=== PATIENT | female | born 1955 | race Caucasian/White ===

== ENCOUNTER 2017-01-25 14:17 | Inpatient (IN) | payer OTHER ==
--- NOTE | 2017-01-25 14:33 | ERNOTE ---
Abdominal HPI - General Chief Complaint: Abdominal Pain Time Seen by Provider: 01/25/17 14:30 Source: patient, RN/MD Exam Limitations: no limitations - Immun/Allergies/Home Medications Immunizatons: IMMUNIZATION HX Immunizations Up to Date Yes History of Influenza Vaccine Yes Hx Pneumococcal Vaccination No Allergies/Adverse Reactions: Allergies No Known Allergies Allergy (Verified 01/25/17 14:38) Home Medications: HOME MEDICATIONS Cetirizine HCl [Zyrtec] 10 mg PO DAILY 01/25/17 [Last Taken Unknown] Clonidine HCl [Catapres] 0.2 mg PO DAILY 01/25/17 [Last Taken Unknown] FLUoxetine HCL [Prozac] 20 mg PO DAILY 01/25/17 [Last Taken Unknown] Ferrous Sulfate [Iron] 325 mg PO DAILY 01/25/17 [Last Taken Unknown] Losartan Potassium [Cozaar] 100 mg PO DAILY 01/25/17 [Last Taken Unknown] Mometasone Furoate [Elocon] 1 appl TP DAILY 01/25/17 [Last Taken Unknown] Omeprazole 40 mg PO DAILY 01/25/17 [Last Taken Unknown] Oxybutynin Chloride [Ditropan] 5 mg PO BID 01/25/17 [Last Taken Unknown] Pravastatin Sodium [Pravachol] 20 mg PO DAILY 01/25/17 [Last Taken Unknown] Sucralfate [Carafate Suspension] 1 g PO QID 01/25/17 [Last Taken Unknown] Triamcinolone Acetonide [Kenalog 0.1%] 1 appl TP BID 01/25/17 [Last Taken Unknown] Warfarin Sodium [Coumadin] 2.5 mg PO ONCE 01/25/17 [Last Taken Unknown] Warfarin Sodium [Coumadin] 5 mg PO MOWEFR 01/25/17 [Last Taken Unknown] levETIRAcetam [Keppra] 500 mg PO BID 01/25/17 [Last Taken Unknown] rOPINIRole HCL [Requip] 1 mg PO DAILY 01/25/17 [Last Taken Unknown] - History of Present Illness Narrative: 61 y.o. female from [place], report given by Dr. Jerome, about diagnosis of acute appendicitis. Pt has received morphine and Zosyn and IV fluids at this time and is pain-free. Review of Systems - Review of Systems Constitutional: Present: no symptoms reported EYE: Present: no symptoms reported ENT: Present: no symptoms reported Respiratory: Present: no symptoms reported Gastrointestinal/Abdominal: Present: See HPI Genitourinary: Present: no symptoms reported Musculoskeletal: Present: no symptoms reported - Patient's Past Medical History Patient History - Medical: Arthritis, Depression Patient History - Cardiac/Respiratory: Hypertension, Hyperlipidemia, CPAP/BiPAP Home Use, Sleep Apnea Patient History - Cancer: No Hx of Cancer Patient History - Surgical Procedures: Back Surgery, Cholecystectomy, Other Patient History - Other: None - Family History Sister Family History - Medical: - Social History Living Situations: home Abuse History: No History of abuse Psych History: No pertinent hx Smoking Status: Never smoker Alcohol Use: none Drug Use: none - Immunizations Immunizations Up to Date: Yes Hx Pneumococcal Vaccination: No History of Influenza Vaccine: Yes Physical Exam - Physical Exam General Appearance: Present: wd/wn, alert, no apparent distress Respiratory: Present: no respiratory distress, normal breath sounds, no accessory muscle use, chest nontender, lungs clear Cardiovascular/Chest: Present: regular rate, rhythm, no murmur, normal peripheral pulses Gastrointestinal/Abdominal: Present: other - due to not wanting to aggravate the patient's symptoms, especially after final diagnosis has been made, this examiner did not examine or palpate the belly. ED Progress - Vital Signs Patient's Vital Signs:: I have reviewed the patient's vital signs. Vital Signs: Vital Signs 01/25/17 14:19 Temperature 36.7 C Pulse Rate 50 L Respiratory 16 Rate Blood Pressure 148/63 O2 Sat by Pulse 95 Oximetry - Progress/Reassessment Chief Complaint: Abdominal Pain Plan - Plan Plan: She was seen and diagnosed and treated by Dr.Khanolkar Sousa and patient has been transferred here for definitive care. I have called Dr. Viramontes and have made him aware that this patient is in the emergency room patient will be admitted to the surgery service. Departure - Departure Clinical Impression: Appendicitis Qualifiers: Appendicitis type: acute appendicitis Acute appendicitis type: unspecified acute appendicitis type Qualified Code(s): K35.80 - Unspecified acute appendicitis Clinical Impression: (Ruled Out): Acute appendicitis with appendiceal abscess Disposition: [facility] Condition: Serious Referrals: Jony Mar MD [Primary Care Provider] -
[2017-01-25 16:00] LABS: INR 1.83 INR (0.90-1.10)
--- OUTSIDE RECORDS SUMMARY | 2017-01-25 16:42 | XMS REPORT | Continuity of Care Document ---
:1955 Author Organization [facility] ([facility]) Address [address] [place] [address] Phone [phone] Care Team Providers Name Role Phone Jony Mar Primary Care Provider [phone] Source Comments This disclosure is being made pursuant to the Care Everywhere program, applicable federal and state laws, and may not contain all informaitonavailable regarding this patient.[facility] ([facility]) Active Allergies and Adverse Reactions Allergen Noted Date Severity Reactions Comments Lisinopril 09/19/2013 OTHER Cough Current Medications Prescription Sig. Disp. Refills Start Date End Date Status traZODone 100 mg Take 100-200 mg by Active tablet mouth at bedtime as needed for Sleep. fluticasone 50 use 2 Sprays into 16 g 3 10/19/2012 Active mcg/Actuation nasal the nose daily. spray Indications: postnasal drip losartan 100 mg Take 1 Tab by mouth 60 Tab 6 03/09/2013 Active tablet daily. Indications: HYPERTENSION omeprazole 40 mg Take 1 Cap by mouth 30 Cap 6 10/05/2013 Active extended release daily. gerd capsule Indications: reflux esophagitis cloNIDine 0.1 mg Take 1 Tab by mouth 120 Tab 1 03/12/2014 Active tablet 2 times daily. Indications: HYPERTENSION acetaminophen 325 mg Take 325 mg by Active tablet mouth every 4 hours as needed. Prn rOPINIRole 1 mg Take 1 mg by mouth Active tablet 2 times daily. FLUoxetine 40 mg Take 40 mg by mouth Active capsule daily. pravastatin 20 mg Take 20 mg by mouth Active tablet every evening. oxybutynin 5 mg Take 10 mg by mouth Active tablet 2 times daily. LORazepam 0.5 mg Take 0.5 mg by Active tablet mouth 2 times daily as needed for Anxiety. levETIRAcetam 500 mg Take 1 tablet (500 90 tablet 2 04/15/2016 Active tablet mg total) by mouth 2 times daily. warfarin 5 mg tablet Take 1 tablet (5 mg 60 tablet 1 04/15/2016 Active total) by mouth every evening. estrogens, conjugated Insert 0.5 g 1 Tube 11 07/01/2016 Active (PREMARIN) 0.625 vaginally 2 times mg/gram vaginal cream weekly. Active Problems Problem Noted Date Cerebral venous sinus thrombosis 04/14/2016 Essential hypertension, benign 04/14/2016 Seizures 04/14/2016 Acute blood loss anemia 04/10/2016 Overview: Trending H/H, will transfuse as indicated. Hypomagnesemia 04/10/2016 Overview: Noted and replaced. Will trend and replace further as indicated. Convulsions 04/09/2016 Overview: On CBEM. Keppra 500 mg BID Colon ulcer 07/10/2013 RLS (restless legs syndrome) 06/22/2012 Morbid obesity 03/22/2012 NASIM (obstructive sleep apnea) 03/22/2012 Colon polyp 12/08/2011 Osteoarthritis 12/08/2011 Insomnia 12/08/2011 Myofascial pain 08/06/2011 Depression 12/19/2008 Overview: Continue home fluoxetine. 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/2016 04/14/2016 Mixed stress and urge urinary incontinence 09/11/2015 10/14/2016 Medication side effects 03/14/2013 04/19/2013 Hypokalemia 03/14/2013 04/19/2013 Breast cancer screening 03/09/2013 04/19/2013 Immunization history incomplete 03/09/2013 04/19/2013 Mixed incontinence 03/22/2012 10/14/2016 Postnasal drip 12/08/2011 10/19/2012 Most Recent Encounters Date Type Specialty Providers Description 01/15/2017 Office Visit Neurology Marck Benoit MD Subj: Upcoming Appt Gayatri Humphries MD Reminder 11/17/2016 Office Visit Neurology Marck Benoit MD Subj: Upcoming Appt Reminder Immunizations Name Dates Previously Given Next Due DTaP, unspecified 09/01/2011,09/24/2007 Influenza 06/08/2014 Influenza, PF 06/22/2012,07/31/2010 Influenza, quadrivalent PF 05/11/2016,06/13/2015 Influenza, unspecified 03/23/2016 Novel Influenza H1N1 07/24/2009 Pneumococcal Polysaccharide, PPSV23 (Pneumovax 23) 03/09/2013 Tdap 06/03/2011 Social History Tobacco Use Types Packs/Day Years Used Date Never Smoker Cigarettes Smokeless Tobacco: Never Used Tobacco Cessation:Counseling Given: Yes Comments: Alcohol Use Drinks/Week oz/Week Comments No social Last Filed Vital Signs Vital Sign Reading Time Taken Blood Pressure 160/70 10/14/2016 1:36 PM PHOTOGRAPHIC HAND DEVELOPER Pulse 82 10/14/2016 1:36 PM PHOTOGRAPHIC HAND DEVELOPER Temperature 35.5 C (95.9 F) 06/12/2016 2:40 PM CDT Respiratory Rate 17 04/14/2016 4:10 PM CDT Height 1.537 m (5' 0.51") 10/14/2016 1:36 PM PHOTOGRAPHIC HAND DEVELOPER Weight 110.5 kg (243 lb 9.7 oz) 10/14/2016 1:36 PM PHOTOGRAPHIC HAND DEVELOPER Body Mass Index 46.78 10/14/2016 1:36 PM PHOTOGRAPHIC HAND DEVELOPER Oxygen Saturation 96% 07/20/2016 1:59 PM PHOTOGRAPHIC HAND DEVELOPER Plan of Care Patient Goal Type Goal Diet Increase water intake Weight Weight below 104 kg (230 lb) Weight below 91 kg (200 lb) Lifestyle declined wishes Date Type Specialty Providers Description 02/10/2017 Appointment Neurology Heriberto Reagan MD Subj: Appointment Scheduled [address] [place] [address] [phone] (Fax) Health Maintenance Due Date Last Done Comments HCV Screening 1955 Hepatitis B Vaccine (1 of 3 1955 - Primary Series) Cervical Cancer Screening 1983 FOBT Colon Cancer Screening 2003 Zoster Vaccine 2013 Mammogram 03/09/2014 03/09/2013, Additional history exists 08/06/2011, 07/31/2010 Lipid Disorder Screening 04/10/2021 04/10/2016, Additional history exists 04/19/2013, 03/09/2013 Td Vaccine 09/01/2021 09/01/2011, 06/03/2011, 09/24/2007 Colonoscopy 04/21/2022 04/21/2012, 01/27/2007 Tdap Vaccine Addressed 08/06/2011 Overridden with the (Previously intention of not completed), completing the topic 06/03/2011 Influenza Vaccine: Seasonal Completed 05/11/2016, Additional history exists 03/23/2016, 06/13/2015 Results from Last 3 Months Not on file
--- NOTE | 2017-01-25 17:11 | HP ---
Chief Complaint - Chief Complaint Date of Service: 01/25/17 Time of Service: 17:02 Chief Complaint: RLQ abdominal History of Present Illness: Had onset of abdominal pain at 10 pm last night Presented to [place] ER today and was found to have acute non-ruptured appendicitis with a normal WBC. She received Zosyn and was transferred here for definitive treatment. - Patient's Past Medical History Patient History - Medical: Arthritis, Depression Patient History - Cardiac/Respiratory: Hypertension, Hyperlipidemia, CPAP/BiPAP Home Use, Sleep Apnea Patient History - Cancer: No Hx of Cancer Patient History - Surgical Procedures: Back Surgery, Cholecystectomy, Other Patient History - Other: None - Family History Sister Family History - Medical: - Social History Living Situations: home Abuse History: No History of abuse Psych History: No pertinent hx Smoking Status: Never smoker Alcohol Use: none Drug Use: none - Immunizations Immunizations Up to Date: Yes Hx Pneumococcal Vaccination: No History of Influenza Vaccine: Yes Review Of Systems (GEN) - Review of Systems Misc: All systems neg except as marked Immunizations: IMMUNIZATION HX Immunizations Up to Date Yes History of Influenza Vaccine Yes Hx Pneumococcal Vaccination No Allergies/Adverse Reactions: Allergies Allergy/AdvReac Type Severity Reaction Status Date / Time No Known Allergies Allergy Verified 01/25/17 14:38 Home Medications: HOME MEDICATIONS Cetirizine HCl [Zyrtec] 10 mg PO DAILY 01/25/17 [Last Taken Unknown] Clonidine HCl [Catapres] 0.2 mg PO DAILY 01/25/17 [Last Taken Unknown] FLUoxetine HCL [Prozac] 20 mg PO DAILY 01/25/17 [Last Taken Unknown] Ferrous Sulfate [Iron] 325 mg PO DAILY 01/25/17 [Last Taken Unknown] Losartan Potassium [Cozaar] 100 mg PO DAILY 01/25/17 [Last Taken Unknown] Mometasone Furoate [Elocon] 1 appl TP DAILY 01/25/17 [Last Taken Unknown] Omeprazole 40 mg PO DAILY 01/25/17 [Last Taken Unknown] Oxybutynin Chloride [Ditropan] 5 mg PO BID 01/25/17 [Last Taken Unknown] Pravastatin Sodium [Pravachol] 20 mg PO DAILY 01/25/17 [Last Taken Unknown] Sucralfate [Carafate Suspension] 1 g PO QID 01/25/17 [Last Taken Unknown] Triamcinolone Acetonide [Kenalog 0.1%] 1 appl TP BID 01/25/17 [Last Taken Unknown] Warfarin Sodium [Coumadin] 2.5 mg PO ONCE 01/25/17 [Last Taken Unknown] Warfarin Sodium [Coumadin] 5 mg PO MOWEFR 01/25/17 [Last Taken Unknown] levETIRAcetam [Keppra] 500 mg PO BID 01/25/17 [Last Taken Unknown] rOPINIRole HCL [Requip] 1 mg PO DAILY 01/25/17 [Last Taken Unknown] Exam - Exam Vital Signs: Vital Signs - Last Taken Temp 36.6 C 01/25/17 16:44 Pulse 47 L 01/25/17 16:57 Resp 14 01/25/17 16:57 BP 121/49 01/25/17 16:57 Pulse Ox 94 01/25/17 16:57 Constitutional: Present: Alert, Oriented x3, Cooperative ENT Exam: Present: normal ENT inspection Eye Exam: bilateral eye: normal inspection Neck: Present: non-tender, full range of motion, supple, normal inspection, trachea midline Respiratory: Present: normal breath sounds, no respiratory distress Cardiovascular/Chest: Present: no murmur, bradycardia Abdomen: Present: Normal bowel sounds, obese, tender, other - lower midline scar. right subcostal scar. Neurologic: Present: no motor/sensory deficits Diagnostic Studies: Abnormal Lab Results 01/25/17 Range/Units 13:38 PT 19.0 H (9.4-11.4) Seconds INR (Anticoag Therapy) 1.83 H (0.90-1.10) INR Laboratory Results PT 19.0 Seconds (9.4-11.4) H 01/25/17 13:38 INR (Anticoag Therapy) 1.83 INR (0.90-1.10) H 01/25/17 13:38 Assessment/Plan - Narrative Narrative: A: acute appendicitis, non-perforated P: Recommend Lap appy. The options, risks, and benefits were reviewed fully. She seems to understand, asks appropriate questions, and desires to proceed. - Assessment/Plan (1) Appendicitis Problem: Acute Qualifiers: Appendicitis type: acute appendicitis Acute appendicitis type: with localized peritonitis Qualified Code(s): K35.3 - Acute appendicitis with localized peritonitis
[2017-01-25] MEDS ORDERED: NORMAL SALINE 1,000 ML IV ONE (18:05)
[2017-01-25] MEDS ORDERED: BUPIVACAINE HCL/EPINEPHRINE 50 ML VIAL IJ ONE ×2 (18:30)
[2017-01-25] MEDS ORDERED: RINGERS SOLUTION,LACTATED 1,000 ML IV ONE (19:50)
[2017-01-25] MEDS ORDERED: PIPERACILLIN SODIUM/TAZOBACTAM 4.5 GM in DEXTROSE 5 % IN WATER 100 ML IV STA ×2 (20:07)
[2017-01-25] MEDS ORDERED: ALBUTEROL SULFATE 2.5 MG/3 ML VIAL.NEB IH ONE ×2 (21:04→21:06)
--- NOTE | 2017-01-25 21:22 | OR ---
Operative Report - Dictated Report Narrative: Date: 01/25/17 PREOP: Acute appendicitis POSTOP: Same plus pronounced cecitis PROC: Diagnostic laparoscopy. Convert to open procedure. Open appendectomy. Staff surgeon: Gabe Viramontes MD EBL 20 cc UOP: 225 Drains: none Specimen: appendix Description: Pt placed in supine position. After GETA a rodriguez catheter was inserted and abdomen prepped and draped in a sterile fashion. All ports anesthetized with marcaine prior to incision. 5mm supraumbilical incision. Abdomen entered under direct vision with a 5mm blunt bariatric port with a scope in the lumen of the trocar. Abdomen insufflated to 15mmHg with CO2. Under direct vision a 12mm suprapubic and 5mm LLQ port were inserted. Numerous old adhesions in the right iliac fossa. Acute fibrinous adhesion of small bowel to right lateral abdominal wall/cecum and terminal ileum. Taken down easily with blunt dissection. Adhesions to cecum were taken down with careful blunt dissection to reveal the terminal ileum and ileal fold of Treves. The cecum was so profoundly inflamed that the character of the tissue may discernment of the appendix very difficult. It was decided to convert to an open procedure. We entered through a olivia-rosalinda incision. Ileal adhesions were taken down. and the appendix was identified coursing under the adhesions into the pelvis. the mesoappendix was taken down in continuity. The distal appendix appeared perfectly normal but attained this consistency of the cecum at its base. The base of the appendix was transected with an endoGIA. The consistency of the cecum was firm and rubbery. Hemostasis appeared to be adequate. Posterior and anterior fascial elements were closed respectively with heavy PDS suture. Incisions were closed with mc and sterile dressings applied. The patient tolerated the procedure well without apparent complications and discharged from the OR in stable condition.
--- OUTSIDE RECORDS SUMMARY | 2017-01-25 21:50 | XMS REPORT | Continuity of Care Document ---
:1955 Author Organization [facility] ([facility]) Address [address] [place] [address] Phone [phone] Care Team Providers Name Role Phone Jony Mar Primary Care Provider [phone] Source Comments This disclosure is being made pursuant to the Care Everywhere program, applicable federal and state laws, and may not contain all informaitonavailable regarding this patient.[facility] ([facility]) Active Allergies and Adverse Reactions Allergen Noted [...] Taken Blood Pressure 160/70 10/14/2016 1:36 PM PROCESS ENGINEERING TECHNICIAN Pulse 82 10/14/2016 1:36 PM PROCESS ENGINEERING TECHNICIAN Temperature 35.5 C (95.9 F) 06/12/2016 2:40 PM CDT Respiratory Rate 17 04/14/2016 4:10 PM CDT Height 1.537 m (5' 0.51") 10/14/2016 1:36 PM PROCESS ENGINEERING TECHNICIAN Weight 110.5 kg (243 lb 9.7 oz) 10/14/2016 1:36 PM PROCESS ENGINEERING TECHNICIAN Body Mass Index 46.78 10/14/2016 1:36 PM PROCESS ENGINEERING TECHNICIAN Oxygen Saturation 96% 07/20/2016 1:59 PM PROCESS ENGINEERING TECHNICIAN Plan of Care Patient Goal Type Goal Diet Increase water intake Weight Weight below 104 kg (230 lb) Weight below 91 kg (200 lb) Lifestyle declined wishes Date Type Specialty Providers Description 02/10/2017 Appointment Neurology Heriberto Reagan MD Subj: Appointment Scheduled [address] [place] [address] [phone] (Fax) Health Maintenance Due Date Last Done [...]
[2017-01-25] MEDS ORDERED: WARFARIN SODIUM 2.5 MG TABLET PO SCH ×2 (22:00→22:30)
[2017-01-25] MEDS ORDERED: ONDANSETRON HCL/PF 2 MG/ML VIAL IV PRN (22:38)
[2017-01-25] MEDS: SUCRALFATE 1 G/10 ML UDC PO SCH (22:52)
[2017-01-25] MEDS: levETIRAcetam 500 MG TABLET PO SCH (22:52)
[2017-01-25] MEDS: TRIAMCINOLONE ACETONIDE 80 APPL TUBE TP SCH (22:52)
[2017-01-25] MEDS: HYDROmorphone HCL 1 MG/ML DISP.SYRIN IV PRN (23:29)
[2017-01-25] MEDS ORDERED: RINGERS SOLUTION,LACTATED 1,000 ML IV PRN (23:49)
[2017-01-25] MEDS ORDERED: MORPHINE SULFATE 2 MG/ML DISP.SYRIN IV PRN (23:49)
[2017-01-25] MEDS ORDERED: HYDROcodone/ACETAMINOPHEN 1 EACH TABLET PO ONE (23:49)
[2017-01-26 05:35] LABS: Hematocrit 32.7 % (37.0-47.0); Hemoglobin 10.1 gm/dL (12.5-16.0); Mean Cell Volume 80.7 fl (78-100); Mean Corpuscular Hemoglobin 24.9 pg (27-31); Mean Corpuscular Hgb Conc 30.9 g/dl (32-36); Mean Platelet Volume 9.3 fl (6.0-9.5); Neutrophil # 5.3 K/mm3 (1.3-6.0); Neutrophil % 75.3 % (42-75.0); Platelet Count 196 K/mm3 (150-450); Red Blood Count 4.05 M/mm3 (4.2-5.4); Red Cell Distribution Width 24.3 % (11.5-14.0); White Blood Count 7.1 K/mm3 (4.0-10.5)
[2017-01-26 05:47] LABS: Anion Gap 10.2 mmol/L (6.8-13.8); BUN/Creatinine Ratio 14.1 (9.0-21.6); Calcium * 8.2 mg/dL (7.9-10.9); Carbon Dioxide 28.6 mmol/L (24-32.6); Estimated Creat Clear 33.1; Potassium 3.8 mmol/L (3.4-4.6)
[2017-01-26] MEDS: HYDROmorphone HCL 1 MG/ML DISP.SYRIN IV PRN (06:21)
[2017-01-26] MEDS: LOSARTAN POTASSIUM 50 MG TABLET PO SCH (08:28)
[2017-01-26] MEDS: SUCRALFATE 1 G/10 ML UDC PO SCH ×4 (08:28→21:49)
[2017-01-26] MEDS: FERROUS SULFATE 325 MG TABLET PO SCH (08:29)
[2017-01-26] MEDS: levETIRAcetam 500 MG TABLET PO SCH ×2 (08:29→21:49)
[2017-01-26] MEDS: FLUoxetine HCL 20 MG CAPSULE PO SCH (08:30)
[2017-01-26] MEDS: HYDROcodone/ACETAMINOPHEN 1 EACH TABLET PO PRN ×3 (08:30→21:46)
[2017-01-26] MEDS: PANTOPRAZOLE SODIUM 40 MG TABLET.EC PO SCH (08:30)
--- NOTE | 2017-01-26 08:32 | CONS ---
HPI - General Date of Service: 01/25/17 Narrative: Consulted regarding bradycardia following abdominal surgery, preop diagnosis appendicitis. postop diagnosis, irritated colon and surrounding tissues with adhesions. Source: patient, other - surgeon recent colonoscopy, [facility]. - History of Present Illness Initial Comments: Patient taking clonidine. 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 Allergies/Adverse Reactions: Allergies No Known Allergies Allergy (Verified 01/25/17 22:41) Home Medications: Home Medications Medication Instructions Recorded Last Taken Cetirizine HCl [Zyrtec] 10 mg PO DAILY 01/25/17 Unknown Clonidine HCl [Catapres] 0.1 mg PO BID 01/25/17 Unknown FLUoxetine HCL [Prozac] 40 mg PO DAILY 01/25/17 Unknown Ferrous Sulfate [Iron] 325 mg PO DAILY 01/25/17 Unknown Losartan Potassium [Cozaar] 100 mg PO DAILY 01/25/17 Unknown Mometasone Furoate [Elocon] 1 appl TP DAILY 01/25/17 Unknown Omeprazole 40 mg PO DAILY 01/25/17 Unknown Oxybutynin Chloride [Ditropan] 10 mg PO BID 01/25/17 Unknown Pravastatin Sodium [Pravachol] 20 mg PO DAILY 01/25/17 Unknown Sucralfate [Carafate Suspension] 1 g PO QID 01/25/17 Unknown Triamcinolone Acetonide [Kenalog 1 appl TP BID 01/25/17 Unknown 0.1%] Warfarin Sodium [Coumadin] 2.5 mg PO SUTUTHSA 01/25/17 Unknown Warfarin Sodium [Coumadin] 5 mg PO MOWEFR 01/25/17 Unknown levETIRAcetam [Keppra] 500 mg PO BID 01/25/17 Unknown rOPINIRole HCL [Requip] 1 mg PO TID 01/25/17 Unknown - Patient's Past Medical History Patient History - Medical: Arthritis, Depression Patient History - Cardiac/Respiratory: CVA/Stroke, Hypertension, Hyperlipidemia , CPAP/BiPAP Home Use, Sleep Apnea Patient History - Cancer: No Hx of Cancer Patient History - Surgical Procedures: Back Surgery, Cholecystectomy Patient History - Other: None LMP (females 10-50): Menopausal - Family History Sister Family History - Medical: Family History - Cardiac/Respiratory: History Unknown Family History - Cancer: History Unknown Brother Family History - Medical: Family History - Cardiac/Respiratory: No pertinent hx Family History - Cancer: Lung Mother Family History - Medical: No pertinent hx Family History - Cardiac/Respiratory: CVA/Stroke, Hypertension Family History - Cancer: No pertinent family hx Father Family History - Medical: No pertinent hx Family History - Cardiac/Respiratory: CVA/Stroke Family History - Cancer: No pertinent family hx - Social History Living Situations: alone Abuse History: No History of abuse Psych History: No pertinent hx Smoking Status: Former smoker Have you smoked in the past 12 months: No Alcohol Use: none Drug Use: none - Immunizations Immunizations Up to Date: Yes Hx Pneumococcal Vaccination: No History of Influenza Vaccine: Yes Procedures TRANSFUSE NONAUT FROZEN PLASMA IN PERIPH VEIN, PERC (01/25/17) Medications - Medications Current Medications: Current Medications Hydromorphone HCl (Dilaudid) 0.5 mg IV Q1H PRN PRN Reason: Moderate Pain Stop: 02/24/17 22:37 Last Admin: 01/26/17 06:21 Dose: 0.5 mg Levetiracetam (Keppra) 500 mg PO BID COUNTS INCLUDE 234 BEDS AT THE [facility] Stop: 02/24/17 22:31 Last Admin: 01/25/17 22:52 Dose: 500 mg Sucralfate (Carafate Suspension) 1 g PO QID CHUNG Stop: 02/24/17 21:01 Last Admin: 01/25/17 22:52 Dose: 1 g Triamcinolone Acetonide (Kenalog 0.1%) 1 appl TP BID CHUNG Stop: 02/24/17 21:01 Last Admin: 01/25/17 22:52 Dose: Not Given Physical Examination - Exam Vital Signs: Vital Signs - Last Taken Temp 36.5 C 01/26/17 07:18 Pulse 66 01/26/17 07:18 Resp 20 01/26/17 07:18 BP 159/71 01/26/17 07:18 Pulse Ox 95 01/26/17 07:51 O2 Oxygen Delivery Method Nasal Cannula - Results and Findings: Lab/Microbiology results last 24 hrs: Abnormal/Pending Laboratory Last 24 HRS 01/26/17 01/26/17 05:05 05:05 RBC 4.05 L Hgb 10.1 L Hct 32.7 L MCH 24.9 L MCHC 30.9 L RDW 24.3 H Neutrophils % 75.3 H Lymphocytes % 15.7 L Lymphocytes # 1.1 L Est GFR (Non-Af Amer) 45 L - Assessments/Findings (1) Bradycardia Diagnosis(s): Bradycardia post op, most likely due to clonidine. I recommend stopping the clonidine, and monitoring the BP and pulse. I will follow with you. Thank you very much for this consult. Problem: Acute
[2017-01-26] MEDS: TRIAMCINOLONE ACETONIDE 80 APPL TUBE TP SCH ×2 (08:38→21:47)
[2017-01-26] MEDS ORDERED: OMEPRAZOLE 20 MG CAPSULE.SA PO SCH (09:00)
[2017-01-26] MEDS ORDERED: SIMVASTATIN 10 MG TABLET PO SCH (09:00)
[2017-01-26] MEDS: amLODIPine BESYLATE 5 MG TABLET PO SCH (09:25)
--- NOTE | 2017-01-26 12:20 | PN ---
Subjective - Date and Time Seen Date: 01/26/17 Time: 12:15 Subjective Narrative: POD1 Open appendectomy with significant cecitis. C/O pain. Requiring O2 supplementation. Objective - Review of Systems Misc: All systems neg except as marked - Vitals Vitals: Last Vital Signs Temp 36.9 C 01/26/17 09:50 Pulse 65 01/26/17 09:40 Resp 20 01/26/17 09:40 BP 150/84 01/26/17 09:40 Pulse Ox 97 01/26/17 09:40 - Abnormal Lab Findings Abnormal Lab Findings: Abnormal Lab Results 01/26/17 01/26/17 Range/Units 05:05 05:05 RBC 4.05 L (4.2-5.4) M/mm3 Hgb 10.1 L (12.5-16.0) gm/dL Hct 32.7 L (37.0-47.0) % MCH 24.9 L (27-31) pg MCHC 30.9 L (32-36) g/dl RDW 24.3 H (11.5-14.0) % Neutrophils % 75.3 H (42-75.0) % Lymphocytes % 15.7 L (20-51) % Lymphocytes # 1.1 L (1.5-3.5) k/mm3 Est GFR (Non-Af Amer) 45 L (60-130) mL/min - Exam Exam Narrative: Pt is up in chair and in no apparent distress. Tolerated clears for breakfast. Assessment/Plan Plan Narrative: A: Pain. Pulmonary issues. Heart rate is improved. P: Pulmonary toilette. WBC is normal today. Discordant with what I found in the abdomen. Unsure as to what type of process is going on in the cecum. Will monitor. Pt had a colonoscopy recently in [place]. Will try to obtain those records. - Problems/Diagnosis (1) Appendicitis Problem: Acute Qualifiers: Appendicitis type: acute appendicitis Acute appendicitis type: with localized peritonitis Qualified Code(s): K35.3 - Acute appendicitis with localized peritonitis
[2017-01-26] MEDS ORDERED: WARFARIN SODIUM 2.5 MG TABLET PO SCH (17:00)
[2017-01-26] MEDS: SIMVASTATIN 10 MG TABLET PO SCH (21:49)
[2017-01-27] MEDS: SUCRALFATE 1 G/10 ML UDC PO SCH ×4 (06:31→20:09)
[2017-01-27 08:15] LABS: Prothrombin Time (Patient) 17.5 Seconds (9.4-11.4)
[2017-01-27 08:20] LABS: INR 1.68 INR (0.90-1.10)
[2017-01-27] MEDS: LOSARTAN POTASSIUM 50 MG TABLET PO SCH (08:41)
[2017-01-27] MEDS: FERROUS SULFATE 325 MG TABLET PO SCH (08:41)
[2017-01-27] MEDS: MOMETASONE FUROATE APPL TP SCH (08:42)
[2017-01-27] MEDS: TRIAMCINOLONE ACETONIDE 80 APPL TUBE TP SCH ×2 (08:42→20:09)
[2017-01-27] MEDS: FLUoxetine HCL 20 MG CAPSULE PO SCH (08:42)
[2017-01-27] MEDS: amLODIPine BESYLATE 5 MG TABLET PO SCH (08:42)
[2017-01-27] MEDS: PANTOPRAZOLE SODIUM 40 MG TABLET.EC PO SCH (08:42)
[2017-01-27] MEDS: levETIRAcetam 500 MG TABLET PO SCH ×2 (08:42→20:09)
[2017-01-27] MEDS: HYDROcodone/ACETAMINOPHEN 1 EACH TABLET PO PRN (14:45)
--- NOTE | 2017-01-27 16:19 | PN ---
Subjective - Date and Time Seen Date: 01/27/17 Time: 16:04 Subjective Narrative: POD2 open appendectomy. No new c/o. Just got her oxygen taken off. Tolerating PO. Objective Objective Narrative: Up in chair. No apparent distress. Margarita CDI. - Vitals Vitals: Last Vital Signs Temp 37.1 C 01/27/17 15:16 Pulse 64 01/27/17 15:16 Resp 20 01/27/17 15:16 BP 150/58 01/27/17 15:16 Pulse Ox 93 01/27/17 15:16 - Abnormal Lab Findings Abnormal Lab Findings: Abnormal Lab Results 01/27/17 Range/Units 08:00 PT 17.5 H (9.4-11.4) Seconds INR (Anticoag Therapy) 1.68 H (0.90-1.10) INR Assessment/Plan Plan Narrative: A/P: Path report shows early appendicitis and a fecalith. It also however shows serosal chronic inflammation and fibrosis. I have obtained her colonoscopy report from [place]. This describes inflammation around the ileocecal valve and a 1 cm presumed diverticulum with inspissated stool in the orifice. No biopsy was taken of this finding. She remains afebrile and her postop WBC is normal suggesting this may be an inflammatory bowel problem. Never the less I think a repeat colonoscopy is in order once she recuperates from this procedure. Continue working on pulmonary toilette. - Problems/Diagnosis (1) Appendicitis Problem: Resolved Qualifiers: Appendicitis type: acute appendicitis Acute appendicitis type: with localized peritonitis Qualified Code(s): K35.3 - Acute appendicitis with localized peritonitis (2) Typhlitis Problem: Chronic
[2017-01-27] MEDS ORDERED: WARFARIN SODIUM 2.5 MG TABLET PO SCH (17:00)
[2017-01-27] MEDS ORDERED: WARFARIN SODIUM 5 MG TABLET PO SCH (17:00)
[2017-01-27] MEDS: HYDROmorphone HCL 1 MG/ML DISP.SYRIN IV PRN (18:54)
[2017-01-27] MEDS: SIMVASTATIN 10 MG TABLET PO SCH (20:09)
[2017-01-27] MEDS ORDERED: oxyCODONE HCL/ACETAMINOPHEN 1 TAB TABLET PO PRN (21:20)
--- NOTE | 2017-01-27 21:50 | PN ---
<Kristen Colvin - Last Filed: 01/27/17 21:52> Subjective - Date and Time Seen Date: 01/27/17 Time: 21:21 Subjective Narrative: states current pain pills do not work. denies cp/dyspnea. no n/v. ambulating well. Objective - Review of Systems Generalized/Overall Review: Reports: No Symptoms Reported EENTM: Reports: No Symptoms Reported Respiratory: Reports: No Symptoms Reported Cardiac: Reports: No Symptoms Reported Abdominal: Reports: Abdominal Pain Genitourinary Symptoms: Reports: No Symptoms Reported Musculoskeletal Complaints: Reports: No Symptoms Reported Neurological: Reports: No Symptoms Reported Skin: Reports: No Symptoms Reported Endocrine: Reports: No Symptoms Reported Misc: All systems neg except as marked - Vitals Vitals: Last Vital Signs Temp 36.8 C 01/27/17 19:47 Pulse 56 L 01/27/17 21:06 Resp 18 01/27/17 21:06 BP 138/52 01/27/17 19:47 Pulse Ox 95 01/27/17 21:06 - Abnormal Lab Findings Abnormal Lab Findings: Abnormal Lab Results 01/27/17 Range/Units 08:00 PT 17.5 H (9.4-11.4) Seconds INR (Anticoag Therapy) 1.68 H (0.90-1.10) INR - Exam Constitutional: Present: Alert, Cooperative, No distress ENT Exam: Present: hearing grossly normal Neck: Present: full range of motion, supple Breasts: Present: Exam deferred Respiratory: Present: lungs clear, normal breath sounds, no respiratory distress Cardiovascular/Chest: Present: normal peripheral pulses, regular rate, rhythm, no chest tenderness Abdomen: Present: soft, tender, guarding /Rectal: Present: Exam deferred Extremity: Present: non-tender, no calf tenderness Skin Exam: Present: normal color, warm/dry, no cyanosis Assessment/Plan Plan Narrative: s/p appendectomy - POD #2, per surgery - pt states norco tabs are not working - will change to percocet to see if this provides better pain control. - encourage ambulation - encourage turn, cough and deep breath - incentive spirometer q 1 hour - discharge per surgery. bradycardia - improved after d/c clonidine. - telemetry HTN - stable on new medication. Code status: full code vte: coumadin gi proph: protonix po. - Problems/Diagnosis (1) Bradycardia Problem: Acute (2) Typhlitis Problem: Chronic (3) S/P appendectomy Problem: Acute (4) HTN (hypertension) Problem: Acute QualifierTitle: Hypertension type: essential hypertension Qualified Code( s): I10 - Essential (primary) hypertension <Ryan Zamudio - Last Filed: 01/29/17 18:07> Subjective Subjective Narrative: Otherwise doing well. I personally directed our nurse practitioner hospitalist care for this patient. Objective - Vitals Vitals: Last Vital Signs Temp 36.9 C 01/28/17 10:28 Pulse 56 L 01/28/17 15:26 Resp 18 01/28/17 10:28 BP 151/65 01/28/17 10:28 Pulse Ox 98 01/28/17 10:28 Assessment/Plan - Problems/Diagnosis (1) Bradycardia Problem: Acute
[2017-01-28] MEDS: oxyCODONE HCL/ACETAMINOPHEN 1 TAB TABLET PO PRN ×3 (00:24→15:28)
[2017-01-28 06:04] LABS: Prothrombin Time (Patient) 18.2 Seconds (9.4-11.4)
--- NOTE | 2017-01-28 06:06 | PN ---
<Kristen Colvin - Last Filed: 01/28/17 06:03> Subjective Subjective Narrative: pain better controlled with percocet. no cp/dyspnea. no n/v. surgery following. Objective - Review of Systems Generalized/Overall Review: Reports: No Symptoms Reported EENTM: Reports: No Symptoms Reported Respiratory: Reports: No Symptoms Reported Cardiac: Reports: No Symptoms Reported Abdominal: Reports: Abdominal Pain. Denies: Nausea, Vomiting Genitourinary Symptoms: Reports: No Symptoms Reported Musculoskeletal Complaints: Reports: No Symptoms Reported Neurological: Reports: No Symptoms Reported Skin: Reports: No Symptoms Reported Endocrine: Reports: No Symptoms Reported Misc: All systems neg except as marked - Vitals Vitals: Last Vital Signs Temp 36.5 C 01/28/17 03:37 Pulse 61 01/28/17 03:41 Resp 18 01/28/17 03:41 BP 132/62 01/28/17 03:37 Pulse Ox 98 01/28/17 03:41 - Abnormal Lab Findings Abnormal Lab Findings: Abnormal Lab Results 01/27/17 Range/Units 08:00 PT 17.5 H (9.4-11.4) Seconds INR (Anticoag Therapy) 1.68 H (0.90-1.10) INR - Exam Constitutional: Present: Alert, Cooperative, No distress ENT Exam: Present: hearing grossly normal Neck: Present: supple Breasts: Present: Exam deferred Respiratory: Present: chest non-tender, lungs clear, normal breath sounds, no respiratory distress, no accessory muscle use Cardiovascular/Chest: Present: normal peripheral pulses, regular rate, rhythm, no chest tenderness Abdomen: Present: soft, tender, guarding /Rectal: Present: Exam deferred Extremity: Present: non-tender, no pedal edema Skin Exam: Present: normal color, warm/dry, no cyanosis Assessment/Plan Plan Narrative: s/p appendectomy - POD #3, per surgery - pain better controlled with percocet - encourage ambulation - encourage turn, cough and deep breath - incentive spirometer q 1 hour - discharge per surgery. bradycardia - improved after d/c clonidine. - telemetry HTN - stable on new medication. Code status: full code vte: coumadin gi proph: protonix po. - Problems/Diagnosis (1) Bradycardia Problem: Acute (2) Typhlitis Problem: Chronic (3) S/P appendectomy Problem: Acute (4) HTN (hypertension) Problem: Acute QualifierTitle: Hypertension type: essential hypertension Qualified Code( s): I10 - Essential (primary) hypertension <Ryan Zamudio - Last Filed: 01/29/17 18:09> Subjective Subjective Narrative: pulse better, bp a little higher. I personally directed our nurse practitioner hospitalist care for this patient. Objective - Vitals Vitals: Last Vital Signs Temp 36.9 C 01/28/17 10:28 Pulse 56 L 01/28/17 15:26 Resp 18 01/28/17 10:28 BP 151/65 01/28/17 10:28 Pulse Ox 98 01/28/17 10:28 Assessment/Plan - Problems/Diagnosis (1) Bradycardia Problem: Acute
[2017-01-28 06:08] LABS: INR 1.75 INR (0.90-1.10)
[2017-01-28] MEDS: SUCRALFATE 1 G/10 ML UDC PO SCH ×2 (06:45→11:11)
[2017-01-28] MEDS: FERROUS SULFATE 325 MG TABLET PO SCH (08:50)
[2017-01-28] MEDS: LOSARTAN POTASSIUM 50 MG TABLET PO SCH (08:50)
[2017-01-28] MEDS: PANTOPRAZOLE SODIUM 40 MG TABLET.EC PO SCH (08:50)
[2017-01-28] MEDS: amLODIPine BESYLATE 5 MG TABLET PO SCH (08:50)
[2017-01-28] MEDS: levETIRAcetam 500 MG TABLET PO SCH (08:50)
[2017-01-28] MEDS: FLUoxetine HCL 20 MG CAPSULE PO SCH (08:50)
[2017-01-28] MEDS: TRIAMCINOLONE ACETONIDE 80 APPL TUBE TP SCH (08:51)
[2017-01-28] MEDS: MOMETASONE FUROATE APPL TP SCH (08:51)
[2017-01-28 10:28] VITALS: BP 151/65
--- NOTE | 2017-01-28 12:41 | DS ---
(1) Appendicitis Problem: Resolved Qualifiers: Appendicitis type: acute appendicitis Acute appendicitis type: with localized peritonitis Qualified Code(s): K35.3 - Acute appendicitis with localized peritonitis (2) Typhlitis Problem: Chronic Description of Stay: Pt transferred from [place] with appendicitis by CT. Was taken to OR and Laparoscopy was converted to open due to adhesions and unusual finding of inflammation and fibrosis of cecum. Path did reveal and fecolith and early appendicitis in the specimen but also noted chronic inflammatory changes and fibrosis of the serosa. Postoperative she required supplemental O2 and was eventually weaned off that with aggressive pulmonary toilette. She had bradycardia in the ER and OR that was asymptomatic. Hospitalists were consulted and it was concluded that the bradycardia was due to clonidine which was discontinued and the bradycardia improved. She discharged in improved condition and is tolerated oral intake well and passing flatus. She is to follow-up with me in one week. It is OK to shower. She is to avoid lifting > 20 lb x 6 weeks. She will need a repeat colonoscopy in six weeks with gastroenterology at [facility]. I will arrange that on her postop visit. Procedures Performed: see notes below List Procedures: Diagnostic laparoscopy. Convert to open procedure. Open appendectomy. Discharge Disposition: Home self care Disposition: Home self-care Condition: Serious Discharge Activity: No Lifting - > 20 lb x 6 wks Discharge Diet: General/regular food Referrals: Jony Mar MD [Primary Care Provider] - Consultation Done:: Hospitalists Complete Home Medications List: Complete Home Medication List: Cetirizine HCl [Zyrtec] 10 mg PO DAILY 01/25/17 Clonidine HCl [Catapres] 0.1 mg PO BID 01/25/17 FLUoxetine HCL [Prozac] 40 mg PO DAILY 01/25/17 Ferrous Sulfate [Iron] 325 mg PO DAILY 01/25/17 Losartan Potassium [Cozaar] 100 mg PO DAILY 01/25/17 Mometasone Furoate [Elocon] 1 appl TP DAILY 01/25/17 Omeprazole 40 mg PO DAILY 01/25/17 Oxybutynin Chloride [Ditropan] 10 mg PO BID 01/25/17 Pravastatin Sodium [Pravachol] 20 mg PO DAILY 01/25/17 Sucralfate [Carafate Suspension] 1 g PO QID 01/25/17 Triamcinolone Acetonide [Kenalog 0.1%] 1 appl TP BID 01/25/17 Warfarin Sodium [Coumadin] 2.5 mg PO SUTUTHSA 01/25/17 Warfarin Sodium [Coumadin] 5 mg PO MOWEFR 01/25/17 levETIRAcetam [Keppra] 500 mg PO BID 01/25/17 rOPINIRole HCL [Requip] 1 mg PO TID 01/25/17
== END 2017-01-28 15:55 | disposition home or self-care (01) | DRG 340 ==
LOC: ER 14:17 → AMB 16:37 → OBSVTOIN 21:47 → MS 21:47
PROVIDERS: ADMIT Specialist; ATTEND Specialist
PROC: 0DTJ0ZZ Resection of Appendix, Open Approach (ICD-10-PCS; 2017-01-25)
PROC: 0DJD4ZZ Inspection of Lower Intestinal Tract, Percutaneous Endoscopic Approach (ICD-10-PCS; 2017-01-25)
PROC: 30233K1 Transfusion of Nonautologous Frozen Plasma into Peripheral Vein, Percutaneous Approach (ICD-10-PCS; principal; 2017-01-25 16:21)
DX: K35.3 Acute appendicitis with localized peritonitis (principal); K52.9 Noninfective gastroenteritis and colitis, unspecified; R00.1 Bradycardia, unspecified; E78.5 Hyperlipidemia, unspecified; I10 Essential (primary) hypertension; Z86.73 Personal history of transient ischemic attack (TIA), and cerebral infarction without residual deficits; Z79.01 Long term (current) use of anticoagulants
CPT/HCPCS: 36415; 36430; 44960; 80048; 85025; 85610; 88304; 93005; 94640; 94660; 99283; P9060